=== PATIENT | female | born 1955 | race Caucasian/White ===

== ENCOUNTER 2017-12-18 14:48 | Day surgery (SDC) | payer OTHER ==
[2017-12-10 11:45] VITALS: BMI 25.4
[2017-12-18] MEDS ORDERED: MIDAZOLAM HCL 2 MG/2 ML SINGLE DOSE VIAL ONE (16:49)
[2017-12-18] MEDS ORDERED: PROPOFOL 20 ML ONE ×2 (16:52)
[2017-12-18] MEDS ORDERED: LIDOCAINE HCL 2% (50ML VIAL) INF ONE (17:05)
[2017-12-18 18:22] VITALS: PULSE 62; TEMP 97.6
[2017-12-18 18:25] VITALS: BP 100/65
--- NOTE | 2017-12-19 09:11 | OP ---
DATE OF OPERATION: 12/18/2017 SURGEON: James Philip MD PREOPERATIVE DIAGNOSIS: Right small trigger-finger. POSTOPERATIVE DIAGNOSIS: Right small trigger-finger. OPERATIVE PROCEDURE: Right small trigger-finger release. ANESTHESIA: Local with sedation. COMPLICATIONS: None. ESTIMATED BLOOD LOSS: Minimal. INDICATIONS FOR PROCEDURE: The patient is a 62-year-old female with the above findings. She was indicated for operative treatment. The risks, benefits, and alternatives were discussed with the patient at length. Proper informed consent was obtained. DESCRIPTION OF PROCEDURE: After proper identification of the patient and the correct operative site, the patient was brought to the operating room and placed supine on the operating room table. All bony prominences were well padded. Sedation was given by the anesthesiologist; local anesthesia was given with 2% lidocaine. Right upper extremity was prepped and draped in the usual sterile fashion. A well-padded tourniquet was placed with a sterile prep. Esmarch bandage used to exsanguinate the left upper extremity. A tourniquet was inflated to 250 mmHg. A longitudinal incision was made over A1 nevaeh to the long finger. Incision was taken sharply through the skin with blunt and sharp dissection through subcutaneous tissues. A1 nevaeh was identified and divided longitudinally. Patient was asked to flex and extend her finger, and no further triggering was noted. Wound was irrigated and repaired with a 5-0 nylon suture. Sterile dressings were applied. Patient was reversed from anesthesia and brought to the recovery room in stable condition. She tolerated the procedure well. JAMES PHILIP M.D. [id number]
== END 2017-12-18 18:00 | disposition home or self-care (01) ==
LOC: FASU 14:48
PROVIDERS: ATTEND Orthopaedic Surgery Hand Surgery
PROC: 0LN70ZZ Release Right Hand Tendon, Open Approach (ICD-10-PCS; principal; 2017-12-18 16:30)
DX: M65.351 Trigger finger, right little finger (principal)

== ENCOUNTER 2020-09-07 09:16 | Day surgery (SDC) | payer OTHER ==
[2020-09-06 11:21] VITALS: BMI 23.8
[2020-09-07] MEDS ORDERED: LIDOCAINE HCL/PF 2% SDV 5ML VIAL ONE (09:19)
[2020-09-07] MEDS ORDERED: DEXAMETHASONE SOD PHOSPHATE 4 MG/1 ML VIAL ONE (09:19)
[2020-09-07] MEDS ORDERED: ONDANSETRON 4 MG/2 ML VIAL ONE (09:19)
[2020-09-07] MEDS ORDERED: KETOROLAC TROMETHAMINE 30 MG/1 ML VIAL ONE (09:19)
[2020-09-07] MEDS ORDERED: PROPOFOL 20 ML ONE (09:20)
[2020-09-07] MEDS ORDERED: MIDAZOLAM HCL 2 MG/2 ML SINGLE DOSE VIAL ONE (09:20)
[2020-09-07] MEDS ORDERED: LIDOCAINE HCL 2% (20ML MULTI-DOSE VIAL) ONE (10:32)
[2020-09-07] MEDS ORDERED: ePHEDrine SULFATE 50 MG/1 ML AMPULE ONE (10:58)
[2020-09-07] MEDS ORDERED: SODIUM CHLORIDE 0.9% P/F 10 ML VIAL IJ ONE (10:58)
[2020-09-07] MEDS ORDERED: LIDOCAINE HCL 2% (50ML VIAL) INF ONE (11:00)
[2020-09-07 13:48] VITALS: TEMP 97.7
[2020-09-07] MEDS ORDERED: LOCK ITEM NR ONE (13:51)
[2020-09-07 14:12] VITALS: BP 108/59; PULSE 75
== END 2020-09-07 13:30 | disposition home or self-care (01) ==
LOC: FASU 09:16
PROVIDERS: ATTEND Orthopaedic Surgery Hand Surgery
PROC: 0LN80ZZ Release Left Hand Tendon, Open Approach (ICD-10-PCS; principal; 2020-09-07 10:56)
DX: M65.352 Trigger finger, left little finger (principal)